=== PATIENT | male | born 1985 | race Caucasian/White ===

== ENCOUNTER 2021-06-23 16:49 | Emergency (ER) | payer SELFPAY ==
[~2021-06-23] VITALS: Ht 180.3 cm; Wt 76.2 kg
[2021-06-23 17:07] VITALS: BP 128/89
[2021-06-23] MEDS ORDERED: IBUPROFEN 600 MG TABLET PO ONE (18:00)
[2021-06-23] MEDS ORDERED: IBUP-2070 PO (18:13)
[2021-06-23] MEDS ORDERED: ACET-66 PO (18:13)
== END 2021-06-23 18:34 | disposition home or self-care (01) ==
LOC: EDH 16:49
DX: S60.212A Contusion of left wrist, initial encounter (principal); Z79.1 Long term (current) use of non-steroidal anti-inflammatories (NSAID); X58.XXXA Exposure to other specified factors, initial encounter; Y93.51 Activity, roller skating (inline) and skateboarding; Y92.89 Other specified places as the place of occurrence of the external cause; Y99.8 Other external cause status
CPT/HCPCS: 73110; 73130